=== PATIENT | male | born 1990 | race Two or more races ===

== ENCOUNTER 2023-05-22 13:51 | Emergency (ER) | payer OTHER ==
[~2023-05-22] VITALS: Ht 172.7 cm; Wt 136.0 kg
[2023-05-22 14:05] VITALS: BP 135/76; PULSE 98; RESP 18; TEMP 98.2; O2SAT 100
[2023-05-22] MEDS ORDERED: TRAM50TA2 PO (19:54)
[2023-05-22] MEDS ORDERED: HYDROcodone-ACET 5/325MG TAB PO ONE (20:00)
[2023-05-22] MEDS ORDERED: ONDANSETRON ODT 4 MG TAB PO ONE (20:00)
== END 2023-05-22 20:42 | disposition home or self-care (01) ==
LOC: EDBD 13:51 → ER 13:51
DX: S83.91XA Sprain of unspecified site of right knee, initial encounter (principal); W18.39XA Other fall on same level, initial encounter; Y93.89 Activity, other specified; Y92.89 Other specified places as the place of occurrence of the external cause; Y99.8 Other external cause status; Z98.890 Other specified postprocedural states
CPT/HCPCS: 29505; 73562; 99283; Q0162